=== PATIENT | male | born 1955 | race Caucasian/White ===

== ENCOUNTER 2022-06-21 19:14 | Inpatient (IN) | payer OTHER, MEDICAID ==
[~2022-06-21] VITALS: Ht 165.1 cm; Wt 75.7 kg
[2022-06-21] MEDS ORDERED: MORPHINE SULFATE 4 MG/ML CPJ (NOT FOR IM USE) IV STA (19:32)
[2022-06-21] MEDS ORDERED: ONDANSETRON HCL 4MG/2ML INJ IV STA (19:32)
[2022-06-21] MEDS ORDERED: SODIUM CHLORIDE 0.9% 1,000 ML IV ONE (19:45)
[2022-06-21 22:59] LABS: BASOPHILS % 0.2 % (0.0-2.0); HEMATOCRIT. 41.1 % (42.0-52.0); HEMOGLOBIN. 13.8 g/dL (14.0-18.0); LYMPHOCYTES % 9.6 % (20.0-50.0); MEAN CORPUSCULAR HEMOGLOBIN 31.3 pg (28.0-32.0); MEAN CORPUSCULAR VOLUME 93.2 fL (80.0-94.0); MEAN PLATELET VOLUME 9.7 fl (7.4-10.4); MONOCYTES % 10.9 % (2.0-8.0); NEUTROPHILS % 79.3 % (40.0-76.0); PLATELET 159 x1000/uL (130-400); RED BLOOD CELL COUNT 4.41 mill/uL (4.7-6.1); RED CELL DISTRIBUTION WIDTH 13.7 % (11.6-14.6)
[2022-06-21 23:05] LABS: CHLORIDE 102 mEq/L (98-107)
[2022-06-21 23:11] LABS: ETHANOL BLOOD < 10 mg/dL
[2022-06-22 00:13] LABS: CLARITY URINE CLEAR (CLEAR); COLOR URINE YELLOW (YELLOW); KETONES URINE NEGATIVE (NEGATIVE); LEUKOCYTE ESTERASE URINE NEGATIVE (NEGATIVE); NITRITE URINE NEGATIVE (NEGATIVE); OCCULT BLOOD URINE TRACE (NEGATIVE); PROTEIN URINE 1+ (NEGATIVE); SPECIFIC GRAVITY URINE 1.015 (1.005-1.030)
[2022-06-22] MEDS ORDERED: CEFTRIAXONE 1 G PREMIX 50 ML IV ONE (00:30)
[2022-06-22 00:35] LABS: *AMPHETAMINES SCREEN URINE NEGATIVE (NEGATIVE); *BARBITURATES SCREEN URINE NEGATIVE (NEGATIVE); *BENZODIAZEPINES SCREEN URINE NEGATIVE (NEGATIVE); *COCAINE SCREEN URINE NEGATIVE (NEGATIVE); CANNABINOID URINE SCREEN NEGATIVE (NEGATIVE); METHADONE URINE SCREEN NEGATIVE (NEGATIVE); OPIATES URINE SCREEN NEGATIVE (NEGATIVE); PHENCYCLIDINE URINE SCREEN NEGATIVE (NEGATIVE)
[2022-06-22 06:00] VITALS: BP 135/64
[2022-06-22] MEDS ORDERED: LISI-186 PO (07:46)
[2022-06-22] MEDS ORDERED: CARV12.545 PO (07:46)
[2022-06-22] MEDS ORDERED: LEVE500T19 PO (07:46)
[2022-06-22] MEDS ORDERED: CHOL1CRY2 MC (07:46)
[2022-06-22] MEDS ORDERED: GLIM2TAB30 PO (07:46)
[2022-06-22] MEDS ORDERED: ATOR10TA69 PO (07:46)
[2022-06-22] MEDS ORDERED: DULA1.5P SQ (07:46)
[2022-06-22] MEDS ORDERED: ASPI-1497 PO (07:46)
[2022-06-22] MEDS ORDERED: APIX5TAB PO (07:46)
[2022-06-22 08:00] VITALS: BP 88/56
[2022-06-22 11:49] VITALS: BP 132/65
[2022-06-22] MEDS ORDERED: MORPHINE SULFATE 2 MG/ML CPJ (NOT FOR IM USE) IV PRN (12:15)
[2022-06-22] MEDS ORDERED: NALOXONE HCL 0.4MG/ML VIAL IV PRN (12:15)
[2022-06-22] MEDS ORDERED: ENOXAPARIN 80MG/0.8ML SYR SUBCUT SCH (13:30)
[2022-06-22] MEDS: SODIUM CHLORIDE 0.9% 1,000 ML IV SCH (14:42)
[2022-06-22] MEDS: LISINOPRIL 5MG TABLET PO SCH (14:58)
[2022-06-22] MEDS ORDERED: PIPERACILLIN/TAZ 3.375G PREMIX 50 ML IV SCH (15:00)
[2022-06-22 16:00] VITALS: BP 123/54
[2022-06-22 16:21] LABS: HEMOGLOBIN. 12.6 g/dL (14.0-18.0); MEAN CORPUSCULAR HEMOGLOBIN 31.2 pg (28.0-32.0); MEAN CORPUSCULAR VOLUME 94.1 fL (80.0-94.0); MEAN PLATELET VOLUME 9.6 fl (7.4-10.4); PLATELET 131 x1000/uL (130-400); RED BLOOD CELL COUNT 4.04 mill/uL (4.7-6.1); RED CELL DISTRIBUTION WIDTH 13.7 % (11.6-14.6)
[2022-06-22 16:34] LABS: CHLORIDE 99 mEq/L (98-107)
[2022-06-22] MEDS ORDERED: DEXTROSE 50% WATER 50ML SYRINGE IV PRN (17:30)
[2022-06-22] MEDS: METRONIDAZOLE 500 MG PREMIX 100 ML IV SCH (17:49)
[2022-06-22] MEDS: LEVETIRACETAM 500MG TABLET PO SCH (17:50)
[2022-06-22 17:53] LABS: PLATELET ESTIMATE NORMAL
[2022-06-22] MEDS: INSULIN LISPRO 100 UNITS/ML SUBCUT SCH ×2 (18:04→21:20)
[2022-06-22 20:00] VITALS: BP 132/56
[2022-06-22] MEDS: FAMOTIDINE 20MG/2ML VIAL IV SCH (20:54)
[2022-06-22] MEDS: ATORVASTATIN CALCIUM 10MG TABLET PO SCH (20:54)
[2022-06-22] MEDS: BLOOD SUGAR DIAGNOSTIC STRIP TEST SCH (21:04)
[2022-06-22] MEDS: CARVEDILOL 12.5MG TABLET PO SCH (21:04)
[2022-06-22] MEDS: PIPERACILLIN/TAZOBACTAM 3.375G in DEXT 5% WATER 50ML IV SCH (21:21)
[2022-06-23] VITALS: BP 111/53
[2022-06-23] MEDS: METRONIDAZOLE 500 MG PREMIX 100 ML IV SCH ×4 (00:12→23:03)
[2022-06-23] MEDS: SODIUM CHLORIDE 0.9% 1,000 ML IV SCH ×2 (00:13→15:30)
[2022-06-23] MEDS: ONDANSETRON HCL 4MG/2ML INJ IV PRN ×2 (00:13→06:11)
[2022-06-23] MEDS: PIPERACILLIN/TAZOBACTAM 3.375G in DEXT 5% WATER 50ML IV SCH ×3 (06:11→21:56)
[2022-06-23 06:21] LABS: HEMATOCRIT. 37.4 % (42.0-52.0); HEMOGLOBIN. 12.6 g/dL (14.0-18.0); MEAN CORPUSCULAR HEMOGLOBIN 31.5 pg (28.0-32.0); MEAN CORPUSCULAR VOLUME 93.5 fL (80.0-94.0); MEAN PLATELET VOLUME 10.4 fl (7.4-10.4); PLATELET 123 x1000/uL (130-400); RED CELL DISTRIBUTION WIDTH 13.8 % (11.6-14.6)
[2022-06-23] MEDS: BLOOD SUGAR DIAGNOSTIC STRIP TEST SCH ×4 (07:20→21:28)
[2022-06-23 08:00] VITALS: BP 99/63
[2022-06-23] MEDS: CARVEDILOL 12.5MG TABLET PO SCH ×2 (09:00→21:55)
[2022-06-23] MEDS: LISINOPRIL 5MG TABLET PO SCH (09:00)
[2022-06-23] MEDS: LEVETIRACETAM 500MG TABLET PO SCH ×2 (09:02→17:14)
[2022-06-23] MEDS: METOCLOPRAMIDE HCL 10MG/2ML VIAL IV SCH ×3 (09:27→21:56)
[2022-06-23] MEDS: INSULIN LISPRO 100 UNITS/ML SUBCUT SCH ×4 (09:35→21:54)
[2022-06-23 11:58] VITALS: BP 106/62
[2022-06-23 12:43] LABS: PLATELET ESTIMATE SLIGHTLY DECREASED
[2022-06-23 16:00] VITALS: BP 113/55
[2022-06-23 20:00] VITALS: BP 134/66
[2022-06-23] MEDS: ATORVASTATIN CALCIUM 10MG TABLET PO SCH (21:55)
[2022-06-23] MEDS: FAMOTIDINE 20MG/2ML VIAL IV SCH (21:55)
[2022-06-24] VITALS: BP 122/61
[2022-06-24] MEDS: SODIUM CHLORIDE 0.9% 1,000 ML IV SCH ×2 (03:17→17:16)
[2022-06-24 04:00] VITALS: BP 116/57
[2022-06-24] MEDS: METOCLOPRAMIDE HCL 10MG/2ML VIAL IV SCH ×3 (05:44→22:07)
[2022-06-24] MEDS: PIPERACILLIN/TAZOBACTAM 3.375G in DEXT 5% WATER 50ML IV SCH ×2 (05:44→13:40)
[2022-06-24] MEDS: BLOOD SUGAR DIAGNOSTIC STRIP TEST SCH ×4 (06:32→21:00)
[2022-06-24 06:36] LABS: INR 1.1; PARTIAL THROMBOPLASTIN TIME 36.4 sec (23.4-31.0); PROTHROMBIN TIME 11.9 sec (9.6-11.0)
[2022-06-24 06:38] LABS: HEMATOCRIT. 36.4 % (42.0-52.0); HEMOGLOBIN. 12.3 g/dL (14.0-18.0); MEAN CORPUSCULAR HEMOGLOBIN 31.4 pg (28.0-32.0); MEAN CORPUSCULAR VOLUME 92.9 fL (80.0-94.0); MEAN PLATELET VOLUME 10.5 fl (7.4-10.4); PLATELET 151 x1000/uL (130-400); RED BLOOD CELL COUNT 3.92 mill/uL (4.7-6.1)
[2022-06-24 07:02] LABS: CHLORIDE 103 mEq/L (98-107)
[2022-06-24 07:36] LABS: HDL CHOLESTEROL 38 mg/dL (40-59); LDL CHOLESTEROL 47 mg/dL (5-100); T4 FREE 1.57 ng/dL (0.76-1.46)
[2022-06-24] MEDS: INSULIN LISPRO 100 UNITS/ML SUBCUT SCH ×5 (07:50→21:00)
[2022-06-24 08:20] VITALS: BP 143/68
[2022-06-24] MEDS: METRONIDAZOLE 500 MG PREMIX 100 ML IV SCH ×3 (08:26→22:24)
[2022-06-24] MEDS: CARVEDILOL 12.5MG TABLET PO SCH ×2 (08:27→21:00)
[2022-06-24] MEDS: LEVETIRACETAM 500MG TABLET PO SCH ×2 (08:27→16:07)
[2022-06-24 10:12] LABS: PLATELET ESTIMATE NORMAL
[2022-06-24 11:57] VITALS: BP 150/53
[2022-06-24 16:31] VITALS: BP 133/63
[2022-06-24] MEDS ORDERED: ONDANSETRON HCL 4MG/2ML INJ ONE (17:07)
[2022-06-24] MEDS ORDERED: DEXAMETHASONE 4MG/ML 1ML VIAL ONE (17:07)
[2022-06-24] MEDS ORDERED: ROCURONIUM BROMIDE 10MG/ML VIAL 5ML IV ONE (17:07)
[2022-06-24] MEDS ORDERED: CEFAZOLIN SODIUM 1000MG/VIAL ONE (17:07)
[2022-06-24] MEDS ORDERED: SUCCINYLCHOLINE CHLORIDE 200MG/10ML IV ONE (17:07)
[2022-06-24] MEDS ORDERED: MIDAZOLAM HCL 2 MG/2 ML VIAL ONE (17:08)
[2022-06-24] MEDS ORDERED: FENTANYL CITRATE/PF 50MCG/ML 2ML VIAL ONE (17:08)
[2022-06-24] MEDS ORDERED: PROPOFOL 200MG/20ML VIAL IV ONE (17:08)
[2022-06-24] MEDS ORDERED: BUPIVACAINE HCL/PF 0.5% (5MG/ML) 10ML ONE ×2 (18:12→18:13)
[2022-06-24] MEDS ORDERED: LIDOCAINE HCL 1% 10 MG/ML 10ML VIAL ONE (18:32)
[2022-06-24] MEDS ORDERED: LABETALOL 5MG/ML SYR 20 MG/4 ML SYRINGE IV PRN (18:45)
[2022-06-24] MEDS ORDERED: ONDANSETRON HCL 4MG/2ML INJ IV PRN (18:45)
[2022-06-24] MEDS ORDERED: MEPERIDINE HCL/PF 25MG/ML CPJ IV PRN (18:45)
[2022-06-24] MEDS ORDERED: HYDROMORPHONE HCL/PF 2MG/ML CPJ IV PRN (18:45)
[2022-06-24] MEDS ORDERED: NEOSTIGMINE METHYLSULFATE 1MG/ML 10 ML VIAL ONE (19:37)
[2022-06-24] MEDS ORDERED: GLYCOPYRROLATE 0.2 MG/ML 2ML VIAL ONE ×2 (19:38)
[2022-06-24] MEDS ORDERED: HYDROMORPHONE HCL/PF 2MG/ML CPJ ONE (20:11)
[2022-06-24] MEDS: ATORVASTATIN CALCIUM 10MG TABLET PO SCH (21:00)
[2022-06-24] MEDS: FAMOTIDINE 20MG/2ML VIAL IV SCH (22:07)
[2022-06-24 23:45] VITALS: BP 105/61
[2022-06-25] VITALS (31 sets, daily range): BP systolic 94–162; BP diastolic 54–93
[2022-06-25] MEDS: PIPERACILLIN/TAZOBACTAM 3.375G in DEXT 5% WATER 50ML IV SCH ×4 (00:19→21:40)
[2022-06-25 05:28] LABS: HEMATOCRIT. 34.6 % (42.0-52.0); HEMOGLOBIN. 11.2 g/dL (14.0-18.0); MEAN CORPUSCULAR HEMOGLOBIN 31.2 pg (28.0-32.0); MEAN CORPUSCULAR VOLUME 96.8 fL (80.0-94.0); MEAN PLATELET VOLUME 9.8 fl (7.4-10.4); RED BLOOD CELL COUNT 3.57 mill/uL (4.7-6.1); RED CELL DISTRIBUTION WIDTH 14.5 % (11.6-14.6)
[2022-06-25 05:36] LABS: CHLORIDE 107 mEq/L (98-107)
[2022-06-25] MEDS: METOCLOPRAMIDE HCL 10MG/2ML VIAL IV SCH ×3 (06:21→21:40)
[2022-06-25 07:04] LABS: PLATELET ESTIMATE NORMAL
[2022-06-25 07:05] LABS: PLATELET 150 x1000/uL (130-400)
[2022-06-25] MEDS: BLOOD SUGAR DIAGNOSTIC STRIP TEST SCH ×4 (07:50→20:36)
[2022-06-25] MEDS: SODIUM CHLORIDE 0.9% 1,000 ML IV SCH ×2 (08:59→20:35)
[2022-06-25] MEDS: INSULIN LISPRO 100 UNITS/ML SUBCUT SCH ×3 (09:00→20:36)
[2022-06-25] MEDS: METRONIDAZOLE 500 MG PREMIX 100 ML IV SCH ×2 (09:00→16:32)
[2022-06-25] MEDS: LEVETIRACETAM 500MG TABLET PO SCH ×2 (09:01→16:32)
[2022-06-25] MEDS: CARVEDILOL 12.5MG TABLET PO SCH ×2 (09:01→20:35)
[2022-06-25] MEDS: ACETAMINOPHEN 325MG TABLET PO PRN (12:52)
[2022-06-25] MEDS: ATORVASTATIN CALCIUM 10MG TABLET PO SCH (20:35)
[2022-06-25] MEDS: FAMOTIDINE 20MG/2ML VIAL IV SCH (20:35)
[2022-06-25] MEDS ORDERED: LEVO-65 MT ×2 (22:04)
[2022-06-25] MEDS ORDERED: METR-167 MT ×2 (22:04)
[2022-06-25] MEDS ORDERED: HYDR-4001 MT ×2 (22:05)
[2022-06-25] MEDS ORDERED: DOCU-138 MT ×2 (22:05)
[2022-06-26] MEDS: METRONIDAZOLE 500 MG PREMIX 100 ML IV SCH ×3 (00:06→15:06)
[2022-06-26] MEDS: ONDANSETRON HCL 4MG/2ML INJ IV PRN (03:46)
[2022-06-26 04:00] VITALS: BP 168/73
[2022-06-26 04:15] VITALS: BP 152/68
[2022-06-26] MEDS: PIPERACILLIN/TAZOBACTAM 3.375G in DEXT 5% WATER 50ML IV SCH ×3 (05:18→21:38)
[2022-06-26] MEDS: METOCLOPRAMIDE HCL 10MG/2ML VIAL IV SCH ×3 (05:18→21:37)
[2022-06-26] MEDS: BLOOD SUGAR DIAGNOSTIC STRIP TEST SCH ×4 (06:17→21:45)
[2022-06-26] MEDS: INSULIN LISPRO 100 UNITS/ML SUBCUT SCH ×4 (06:17→21:44)
[2022-06-26 07:31] LABS: BASOPHILS % 0.1 % (0.0-2.0); EOSINOPHILS % 0.2 % (0.0-5.0); HEMOGLOBIN. 11.8 g/dL (14.0-18.0); LYMPHOCYTES % 8.5 % (20.0-50.0); MEAN CORPUSCULAR HEMOGLOBIN 31.2 pg (28.0-32.0); MEAN CORPUSCULAR VOLUME 95.2 fL (80.0-94.0); MEAN PLATELET VOLUME 9.9 fl (7.4-10.4); MONOCYTES % 7.1 % (2.0-8.0); NEUTROPHILS % 84.1 % (40.0-76.0); PLATELET 178 x1000/uL (130-400); RED BLOOD CELL COUNT 3.78 mill/uL (4.7-6.1); RED CELL DISTRIBUTION WIDTH 13.9 % (11.6-14.6)
[2022-06-26 07:40] LABS: CHLORIDE 104 mEq/L (98-107)
[2022-06-26] MEDS: CARVEDILOL 12.5MG TABLET PO SCH ×2 (09:43→21:37)
[2022-06-26] MEDS: LEVETIRACETAM 500MG TABLET PO SCH ×2 (09:43→15:07)
[2022-06-26] MEDS: SODIUM CHLORIDE 0.9% 1,000 ML IV SCH ×2 (09:46→21:40)
[2022-06-26] MEDS: ACETAMINOPHEN 325MG TABLET PO PRN (15:07)
[2022-06-26] MEDS ORDERED: LEVO-65 MT (15:56)
[2022-06-26] MEDS ORDERED: DOCU-138 MT (15:56)
[2022-06-26] MEDS ORDERED: HYDR-4001 MT (15:56)
[2022-06-26 16:00] VITALS: BP 155/69
[2022-06-26 20:00] VITALS: BP 143/72
[2022-06-26] MEDS: ATORVASTATIN CALCIUM 10MG TABLET PO SCH (21:36)
[2022-06-26] MEDS: FAMOTIDINE 20MG/2ML VIAL IV SCH (21:37)
[2022-06-27] VITALS: BP 162/71
[2022-06-27] MEDS: METRONIDAZOLE 500 MG PREMIX 100 ML IV SCH ×2 (00:20→09:20)
[2022-06-27 04:00] VITALS: BP 159/74
[2022-06-27] MEDS: METOCLOPRAMIDE HCL 10MG/2ML VIAL IV SCH ×2 (05:43→14:09)
[2022-06-27] MEDS: INSULIN LISPRO 100 UNITS/ML SUBCUT SCH ×2 (05:49→14:12)
[2022-06-27] MEDS: PIPERACILLIN/TAZOBACTAM 3.375G in DEXT 5% WATER 50ML IV SCH ×2 (05:56→14:09)
[2022-06-27] MEDS: BLOOD SUGAR DIAGNOSTIC STRIP TEST SCH ×2 (05:57→11:40)
[2022-06-27 06:27] LABS: BASOPHILS % 0.2 % (0.0-2.0); EOSINOPHILS % 1.1 % (0.0-5.0); HEMATOCRIT. 37.9 % (42.0-52.0); HEMOGLOBIN. 12.1 g/dL (14.0-18.0); LYMPHOCYTES % 11.6 % (20.0-50.0); MEAN CORPUSCULAR HEMOGLOBIN 31.1 pg (28.0-32.0); MEAN CORPUSCULAR VOLUME 97.4 fL (80.0-94.0); MEAN PLATELET VOLUME 9.4 fl (7.4-10.4); MONOCYTES % 11.3 % (2.0-8.0); NEUTROPHILS % 75.8 % (40.0-76.0); PLATELET 130 x1000/uL (130-400); RED BLOOD CELL COUNT 3.89 mill/uL (4.7-6.1); RED CELL DISTRIBUTION WIDTH 14.3 % (11.6-14.6)
[2022-06-27 06:34] LABS: CHLORIDE 106 mEq/L (98-107)
[2022-06-27 08:00] VITALS: BP 170/80
[2022-06-27] MEDS: LEVETIRACETAM 500MG TABLET PO SCH (09:19)
[2022-06-27] MEDS: CARVEDILOL 12.5MG TABLET PO SCH (09:19)
[2022-06-27] MEDS: SODIUM CHLORIDE 0.9% 1,000 ML IV SCH (14:09)
[2022-06-27 15:41] VITALS: BP 114/81
[2022-06-27] MEDS ORDERED: FAMOTIDINE 20MG TABLET PO SCH (21:00)
== END 2022-06-27 16:45 | disposition home health service (06) | DRG 853 ==
LOC: ER 19:14 → 6EST 06-22 00:38 → EDBEDREQ 06-22 00:42 → EDBEDREQTM 06-22 00:42 → ENRESERV 06-22 03:44 → ER 06-22 05:15 → UNDODISIN 06-22 09:30 → 6WST 06-23 18:52 → CVICU 06-24 23:07 → 7EST 06-25 18:00
PROVIDERS: ADMIT Internal Medicine; ATTEND Internal Medicine
PROC: 0FT44ZZ Resection of Gallbladder, Percutaneous Endoscopic Approach (ICD-10-PCS; principal; 2022-06-24)
DX: A41.9 Sepsis, unspecified organism (principal); N17.0 Acute kidney failure with tubular necrosis; E11.52 Type 2 diabetes mellitus with diabetic peripheral angiopathy with gangrene; K80.00 Calculus of gallbladder with acute cholecystitis without obstruction; I13.0 Hypertensive heart and chronic kidney disease with heart failure and stage 1 through stage 4 chronic kidney disease, or unspecified chronic kidney disease; I69.354 Hemiplegia and hemiparesis following cerebral infarction affecting left non-dominant side; K56.7 Ileus, unspecified; E11.22 Type 2 diabetes mellitus with diabetic chronic kidney disease; N18.9 Chronic kidney disease, unspecified; N20.0 Calculus of kidney; K62.89 Other specified diseases of anus and rectum; K52.9 Noninfective gastroenteritis and colitis, unspecified; K40.20 Bilateral inguinal hernia, without obstruction or gangrene, not specified as recurrent; K82.A1 Gangrene of gallbladder in cholecystitis; I50.9 Heart failure, unspecified; I25.10 Atherosclerotic heart disease of native coronary artery without angina pectoris; G40.909 Epilepsy, unspecified, not intractable, without status epilepticus; K40.90 Unilateral inguinal hernia, without obstruction or gangrene, not specified as recurrent; M43.17 Spondylolisthesis, lumbosacral region; E78.5 Hyperlipidemia, unspecified; K44.9 Diaphragmatic hernia without obstruction or gangrene; K82.8 Other specified diseases of gallbladder; Z20.822 Contact with and (suspected) exposure to COVID-19; Z79.01 Long term (current) use of anticoagulants; Z79.82 Long term (current) use of aspirin; Z79.899 Other long term (current) drug therapy; Z79.84 Long term (current) use of oral hypoglycemic drugs; Z95.5 Presence of coronary angioplasty implant and graft; Z95.810 Presence of automatic (implantable) cardiac defibrillator
CPT/HCPCS: 36415; 74176; 76700; 78227; 80048; 80053; 80061; 80076; 80305; 80320; 81003; 82248; 82962; 83036; 84439; 84443; 84481; 84484; 85025; 87426; 88304; 93005; 93306; 99285; A9537; J0330; J0690; J1100; J1170; J1650; J1815; J2250; J2270; J2405; J2543; J2704; J2710; J2765; J3010; J3490; J7030; J7060; A4315; G0480

== ENCOUNTER 2022-07-03 19:03 | Inpatient (IN) | payer OTHER, MEDICAID ==
[~2022-07-03] VITALS: Ht 177.8 cm; Wt 70.4 kg
[~2022-07-03 19:03] MED LIST: APIX5TAB PO; ASPI-1497 PO; ATOR10TA69 PO; CARV12.545 PO; CHOL1CRY2 MC; DOCU-138 MT; DULA1.5P SQ; GLIM2TAB30 PO; HYDR-4001 MT; LEVE500T19 PO; LEVO-65 MT; LISI-186 PO
[2022-07-03 19:54] LABS: BASOPHILS % 0.2 % (0.0-2.0); EOSINOPHILS % 1.1 % (0.0-5.0); HEMATOCRIT. 32.8 % (42.0-52.0); HEMOGLOBIN. 10.9 g/dL (14.0-18.0); LYMPHOCYTES % 13.5 % (20.0-50.0); MEAN CORPUSCULAR HEMOGLOBIN 31.2 pg (28.0-32.0); MEAN CORPUSCULAR VOLUME 93.7 fL (80.0-94.0); MEAN PLATELET VOLUME 9.4 fl (7.4-10.4); MONOCYTES % 9.6 % (2.0-8.0); NEUTROPHILS % 75.6 % (40.0-76.0); PLATELET 287 x1000/uL (130-400); RED CELL DISTRIBUTION WIDTH 13.6 % (11.6-14.6)
[2022-07-03 19:55] LABS: CHLORIDE 94 mEq/L (98-107)
[2022-07-03 20:00] LABS: INR 1.2; PROTHROMBIN TIME 12.5 sec (9.6-11.0)
[2022-07-03 20:05] LABS: ETHANOL BLOOD < 10 mg/dL
[2022-07-03] MEDS ORDERED: POTASSIUM CHLORIDE 20MEQ/PACKET PO ONE (20:30)
[2022-07-03] MEDS ORDERED: SODIUM CHLORIDE 0.9% 1,000 ML IV ONE (20:30)
[2022-07-03] MEDS ORDERED: ONDANSETRON HCL 4MG/2ML INJ IV ONE (21:00)
[2022-07-03] MEDS ORDERED: POTASSIUM CHLORIDE 20MEQ/PACKET PO NR (22:30)
[2022-07-03] MEDS ORDERED: IOHEXOL-350 100 ML BOTTLE ONE (23:24)
[2022-07-04] MEDS ORDERED: ENOXAPARIN 30MG/0.3ML SYR SUBCUT SCH (09:00)
[2022-07-04] MEDS ORDERED: ACETAMINOPHEN 325MG TABLET PO PRN (09:00)
[2022-07-04] MEDS ORDERED: ONDANSETRON HCL 4MG/2ML INJ IV PRN (09:00)
[2022-07-04 11:38] VITALS: BP 107/62
[2022-07-04 11:42] VITALS: BP 107/62
[2022-07-04] MEDS ORDERED: DEXTROSE 50% WATER 50ML SYRINGE IV PRN (14:15)
[2022-07-04 16:03] VITALS: BP 126/55
[2022-07-04] MEDS: BLOOD SUGAR DIAGNOSTIC STRIP TEST SCH ×2 (17:19→20:28)
[2022-07-04] MEDS: ASPIRIN 81MG TABLET PO SCH (17:46)
[2022-07-04] MEDS: INSULIN LISPRO 100 UNITS/ML SUBCUT SCH ×2 (17:48→20:30)
[2022-07-04] MEDS ORDERED: LORAZEPAM 2MG/ML CPJ IV NR (19:44)
[2022-07-04 20:00] VITALS: BP 106/54
[2022-07-04] MEDS ORDERED: LEVOFLOXACIN 500MG TABLET PO NR (20:00)
[2022-07-04] MEDS ORDERED: ATORVASTATIN CALCIUM 40MG TABLET PO SCH (21:00)
[2022-07-05] VITALS: BP 117/56
[2022-07-05 04:00] VITALS: BP 138/66
[2022-07-05] MEDS: INSULIN LISPRO 100 UNITS/ML SUBCUT SCH ×2 (05:53→12:38)
[2022-07-05] MEDS: BLOOD SUGAR DIAGNOSTIC STRIP TEST SCH ×2 (05:53→12:33)
[2022-07-05 07:38] VITALS: BP 150/77
[2022-07-05] MEDS: ASPIRIN 81MG TABLET PO SCH (08:25)
[2022-07-05] MEDS ORDERED: APIXABAN 5 MG TABLET PO SCH (09:00)
[2022-07-05] MEDS ORDERED: POTASSIUM CHLORIDE 20MEQ/PACKET PO NR (09:15)
[2022-07-05 11:58] LABS: BASOPHILS % 0.2 % (0.0-2.0); EOSINOPHILS % 1.5 % (0.0-5.0); HEMATOCRIT. 32.2 % (42.0-52.0); HEMOGLOBIN. 10.9 g/dL (14.0-18.0); LYMPHOCYTES % 12.8 % (20.0-50.0); MEAN CORPUSCULAR HEMOGLOBIN 31.5 pg (28.0-32.0); MEAN PLATELET VOLUME 9.3 fl (7.4-10.4); MONOCYTES % 9.6 % (2.0-8.0); NEUTROPHILS % 75.9 % (40.0-76.0); PLATELET 266 x1000/uL (130-400); RED BLOOD CELL COUNT 3.46 mill/uL (4.7-6.1); RED CELL DISTRIBUTION WIDTH 13.7 % (11.6-14.6)
[2022-07-05 12:00] VITALS: BP 149/71
[2022-07-05 14:27] VITALS: BP 143/77
== END 2022-07-05 15:15 | disposition home or self-care (01) | DRG 64 ==
LOC: ER 19:03 → MICUSO 22:44 → EDBEDREQ 22:48 → EDBEDREQSVC 22:48 → EDBEDREQTM 22:48 → 8WST 07-04 12:22
PROVIDERS: ADMIT Internal Medicine; ATTEND Internal Medicine
DX: I63.9 Cerebral infarction, unspecified (principal); E11.00 Type 2 diabetes mellitus with hyperosmolarity without nonketotic hyperglycemic-hyperosmolar coma (NKHHC); G93.41 Metabolic encephalopathy; N17.0 Acute kidney failure with tubular necrosis; R53.1 Weakness; E78.5 Hyperlipidemia, unspecified; E66.9 Obesity, unspecified; I12.9 Hypertensive chronic kidney disease with stage 1 through stage 4 chronic kidney disease, or unspecified chronic kidney disease; E11.22 Type 2 diabetes mellitus with diabetic chronic kidney disease; E11.65 Type 2 diabetes mellitus with hyperglycemia; N18.9 Chronic kidney disease, unspecified; E78.00 Pure hypercholesterolemia, unspecified; Z79.899 Other long term (current) drug therapy; Z90.49 Acquired absence of other specified parts of digestive tract; Z95.810 Presence of automatic (implantable) cardiac defibrillator; Z68.22 Body mass index [BMI] 22.0-22.9, adult; Z79.01 Long term (current) use of anticoagulants
CPT/HCPCS: 36415; 71045; 80048; 80053; 80320; 82962; 83036; 84484; 85025; 93005; 97161; 97535; 99291; J1650; J1815; J2405; J7030; Q9967; G0480